=== PATIENT | female | born 1985 | race Caucasian/White ===

== ENCOUNTER 2016-09-06 13:32 | Emergency (ER) | payer BC, MEDICAID ==
[~2016-09-06] VITALS: Ht 157.5 cm; Wt 63.5 kg
[2016-09-06 13:39] VITALS: BP_SYST 152
[2016-09-06] MEDS ORDERED: KETOROLAC TROMETHAMINE 60 MG/2 ML VIAL IM ONE (14:00)
[2016-09-06 14:15] VITALS: BP_SYST 152
[2016-09-06 14:30] LABS: CANNABINOID, URINE POSITIVE (NEG <=50)
[2016-09-06 14:31] LABS: BARBITURATE, URINE NEGATIVE (NEG <=200); BENZODIAZEPINE, URINE NEGATIVE (NEG <=150); COCAINE, URINE NEGATIVE (NEG <=150); METHAMPHETAMINES SCREEN,URINE NEGATIVE (NEG <=500); OPIATE, URINE POSITIVE (NEG <=100); PHENCYCLIDINE SCREEN,URINE NEGATIVE (NEG <=25); UR TRICYCLIC ANTIDEPRESSANTS NEGATIVE (NEG <=300); URINE AMPHETAMINE NEGATIVE (NEG <=500); URINE METHADONE NEGATIVE (NEG <=200); URINE OXYCODONE SCREEN NEGATIVE (NEG <=100); URINE PROPOXYPHENE SCREEN NEGATIVE (NEG <=300)
== END 2016-09-06 14:15 | disposition home or self-care (01) ==
LOC: SED 13:32
DX: G89.29 Other chronic pain (principal); R52 Pain, unspecified
CPT/HCPCS: 80307; 81025; 96372; 99283; J1885

== ENCOUNTER 2021-03-24 06:00 | Day surgery (SDC) | payer MEDICAID, SELFPAY ==
[~2021-03-24] VITALS: Ht 157.5 cm; Wt 68.0 kg
[2021-03-24 06:33] LABS: HCG,QUAL RESULT NEGATIVE (NEGATIVE)
[2021-03-24] MEDS ORDERED: SIMETHICONE 40 MG/0.6 ML ML ONE (06:38)
[2021-03-24] MEDS ORDERED: MEPERIDINE 100 MG INJ. 100 MG/ML VIAL ONE (06:38)
[2021-03-24] MEDS ORDERED: MIDAZOLAM HCL 5 MG/5 ML VIAL ONE ×2 (06:39→07:58)
[2021-03-24] MEDS ORDERED: BENZOCAINE 20% 0.5mL UD SPRAY MM ONE (07:27)
[2021-03-24] MEDS ORDERED: ONDANSETRON HCL 4 MG/2 ML VIAL ONE (07:58)
[2021-03-24] MEDS ORDERED: DIPHENHYDRAMINE INJ 50 MG/ML VIAL ONE (08:39)
[2021-03-24 11:56] VITALS: BP_SYST 119
== END 2021-03-24 09:40 | disposition home or self-care (01) ==
LOC: SDS 06:00
PROVIDERS: ATTEND Internal Medicine Gastroenterology
DX: R19.4 Change in bowel habit (principal); K64.4 Residual hemorrhoidal skin tags; K29.80 Duodenitis without bleeding; R11.10 Vomiting, unspecified; R10.9 Unspecified abdominal pain; K29.50 Unspecified chronic gastritis without bleeding; F12.90 Cannabis use, unspecified, uncomplicated; Z79.899 Other long term (current) drug therapy; Z20.822 Contact with and (suspected) exposure to COVID-19
CPT/HCPCS: 43239; 45380; 84703; 88305; 88312; 88313; 99152; 99153; G0378; J1200; J2175; J2250; J2405; U0003